=== PATIENT | female | born 1980 ===

== ENCOUNTER 2020-09-10 12:48 | Emergency (ER) | payer SELFPAY ==
[2020-09-10] MEDS ORDERED: cloNIDine 0.1 MG TAB ONE (13:06)
[2020-09-10] MEDS ORDERED: Ondansetron PF 4 MG/2 ML Vial ONE (13:07)
[2020-09-10] MEDS ORDERED: Ondansetron ODT 4 MG TAB ONE (13:10)
[2020-09-10] MEDS ORDERED: cloNIDine 0.1mg/24 Hour PATCH TD SCH (13:15)
[2020-09-10] MEDS ORDERED: Ondansetron ODT 4 MG TAB PO SCH (13:15)
== END 2020-09-10 14:30 | disposition home or self-care (01) ==
LOC: ERS 12:48
DX: F11.23 Opioid dependence with withdrawal (principal)
CPT/HCPCS: 93005; J2405; Q0162